=== PATIENT | male | born 1995 | race Caucasian/White ===

== ENCOUNTER 2019-05-24 16:57 | Emergency (ER) | payer SELFPAY ==
[2019-05-24] MEDS ORDERED: Clindamycin 150 MG CAP ONE (17:21)
[2019-05-24] MEDS ORDERED: Bacitracin 1 PK ONE (17:22)
== END 2019-05-24 17:35 | disposition home or self-care (01) ==
LOC: BURERS 16:57
DX: L03.115 Cellulitis of right lower limb (principal); S80.211A Abrasion, right knee, initial encounter; F17.210 Nicotine dependence, cigarettes, uncomplicated; X58.XXXA Exposure to other specified factors, initial encounter
CPT/HCPCS: 99283